=== PATIENT | female | born 1965 | race Caucasian/White ===

== ENCOUNTER 2017-04-01 22:55 | Emergency (ER) | payer SELFPAY ==
[~2017-04-01] VITALS: Ht 162.6 cm; Wt 65.8 kg
[2017-04-01 23:01] VITALS: BP 121/61
== END 2017-04-02 00:06 | disposition left against medical advice (07) ==
LOC: EDBD 22:55 → ER 22:55
DX: M54.31 Sciatica, right side (principal); Z53.21 Procedure and treatment not carried out due to patient leaving prior to being seen by health care provider